=== PATIENT | male | born 1985 | race Caucasian/White ===

== ENCOUNTER 2019-02-05 14:06 | Inpatient (IN) | payer SELFPAY ==
[~2019-02-05] VITALS: Ht 185.4 cm; Wt 138.4 kg
[2019-02-05] MEDS ORDERED: METFORMIN500 MG PO (15:15)
[2019-02-05] MEDS ORDERED: ASPIRIN (15:16)
[2019-02-05] MEDS ORDERED: FISH OIL1000 MG PO (15:17)
[2019-02-05] MEDS ORDERED: LOSARTAN POT50 MG PO (15:17)
[2019-02-05 15:18] LABS: HEMATOCRIT 40.4 % (39.0-50.0); IMMATURE GRANULOCYTES 0.5 % (0.0-5.0); MEAN CELL VOLUME 88.2 fL CALC (80.0-100.0); MEAN CORPUSCULAR HGB 30.6 pG CALC (26.0-32.0); MEAN CORPUSCULAR HGB CONC 34.7 g/L CALC (32.0-36.0); NEUT# 3.79 thou/uL (1.82-7.42); RED BLOOD COUNT 4.58 mill/uL (4.70-6.10); RED CELL DISTRI WIDTH 12.2 % (11.5-15.5)
[2019-02-05 15:23] LABS: URINE BILIRUBIN - DIPSTICK NEGATIVE (NEGATIVE); URINE BLOOD DIPSTICK NEGATIVE (NEGATIVE); URINE COLOR YELLOW; URINE GLUCOSE - DIPSTICK >=1000 mg/dL (NEGATIVE); URINE KETONE TRACE mg/dL (NEGATIVE); URINE LEUK ESTERASE NEGATIVE (NEGATIVE); URINE NITRITE - DIPSTICK NEGATIVE (Negative); URINE PH 5.5 (4.5-8.0); URINE PROTEIN - DIPSTICK NEGATIVE (NEG-TRACE); URINE SPECIFIC GRAVITY <=1.005; URINE UROBILINOGEN - DIPSTICK 0.2 E.U./dL (0.2)
[2019-02-05 15:27] LABS: ALBUMIN 4.4 g/dL (3.2-5.0); ALKALINE PHOSPHATASE 190 u/l (38-126); ANION GAP 20 (6-22 (CALC)); BILIRUBIN, TOTAL 1.3 mg/dL (0.0-1.4); BUN 13 mg/dL (9-20); BUN/CREATININE RATIO 16 (12-20 (CALC)); CARBON DIOXIDE 20 mmol/l (22-30); CHLORIDE 95 mmol/l (95-108); CREATININE 0.8 mg/dL (0.7-1.3); GFR > 60 ML/MIN (>=60 (CALC)); GFR FOR AFR.AMER. > 60 ML/MIN (>=60 (CALC)); SGOT/AST 72 u/l (17-59); SODIUM 131 mmol/l (137-146); TOTAL PROTEIN 7.2 g/dL (6.3-8.2)
[2019-02-05 19:45] VITALS: BP 156/82
[2019-02-05 20:00] VITALS: BP 160/111
[2019-02-05 21:00] VITALS: BP 137/83
[2019-02-05 22:00] VITALS: BP 134/79
[2019-02-06] VITALS (8 sets, daily range): BP systolic 112–169; BP diastolic 77–101
[2019-02-06 00:56] LABS: BUN 13 mg/dL (9-20); BUN/CREATININE RATIO 14 (12-20 (CALC)); CHLORIDE 101 mmol/l (95-108); GFR > 60 ML/MIN (>=60 (CALC)); GFR FOR AFR.AMER. > 60 ML/MIN (>=60 (CALC))
[2019-02-06 00:58] LABS: ANION GAP 15 (6-22 (CALC))
[2019-02-06 00:59] LABS: CARBON DIOXIDE 26 mmol/l (22-30); SODIUM 138 mmol/l (137-146)
[2019-02-06 05:52] LABS: ANION GAP 15 (6-22 (CALC)); BUN 13 mg/dL (9-20); BUN/CREATININE RATIO 16 (12-20 (CALC)); CARBON DIOXIDE 25 mmol/l (22-30); CHLORIDE 103 mmol/l (95-108); CREATININE 0.8 mg/dL (0.7-1.3); GFR > 60 ML/MIN (>=60 (CALC)); GFR FOR AFR.AMER. > 60 ML/MIN (>=60 (CALC)); POTASSIUM 3.9 mmol/l (3.5-5.1); SODIUM 139 mmol/l (137-146)
[2019-02-07 00:05] VITALS: BP 146/81
[2019-02-07 04:56] VITALS: BP 141/88
[2019-02-07 05:46] LABS: HEMOGLOBIN 13.5 g/dl (14.0-18.0); IMMATURE GRANULOCYTES 0.4 % (0.0-5.0); MEAN CELL VOLUME 89.9 fL CALC (80.0-100.0); MEAN CORPUSCULAR HGB 30.3 pG CALC (26.0-32.0); MEAN CORPUSCULAR HGB CONC 33.8 g/L CALC (32.0-36.0); NEUT# 2.73 thou/uL (1.82-7.42); RED BLOOD COUNT 4.45 mill/uL (4.70-6.10); RED CELL DISTRI WIDTH 12.4 % (11.5-15.5)
[2019-02-07 06:14] LABS: ALBUMIN 4.2 g/dL (3.2-5.0); ALKALINE PHOSPHATASE 112 u/l (38-126); ANION GAP 15 (6-22 (CALC)); BILIRUBIN, TOTAL 1.1 mg/dL (0.0-1.4); BUN 12 mg/dL (9-20); BUN/CREATININE RATIO 14 (12-20 (CALC)); CARBON DIOXIDE 23 mmol/l (22-30); CHLORIDE 105 mmol/l (95-108); CREATININE 0.9 mg/dL (0.7-1.3); GFR > 60 ML/MIN (>=60 (CALC)); GFR FOR AFR.AMER. > 60 ML/MIN (>=60 (CALC)); MAGNESIUM 1.7 mg/dL (1.6-2.3); SGOT/AST 77 u/l (17-59); SODIUM 138 mmol/l (137-146); TOTAL PROTEIN 6.7 g/dL (6.3-8.2)
[2019-02-07 07:19] VITALS: BP 165/94
[2019-02-07 07:27] VITALS: BP 165/94
== END 2019-02-07 15:10 | disposition home or self-care (01) | DRG 638 ==
LOC: ED 14:06 → ED-I 15:58 → ED 17:41 → ICU 17:42 → MS2 02-06 14:06
PROVIDERS: Emergency Medicine; Internal Medicine Nephrology; ADMIT Internal Medicine; ATTEND Internal Medicine
DX: E11.65 Type 2 diabetes mellitus with hyperglycemia (principal); Z68.41 Body mass index [BMI] 40.0-44.9, adult; I10 Essential (primary) hypertension; F41.9 Anxiety disorder, unspecified; F32.9 Major depressive disorder, single episode, unspecified; E66.9 Obesity, unspecified; I51.7 Cardiomegaly; R74.0 Nonspecific elevation of levels of transaminase and lactic acid dehydrogenase [LDH]; F17.210 Nicotine dependence, cigarettes, uncomplicated; Z86.011 Personal history of benign neoplasm of the brain; Z83.3 Family history of diabetes mellitus; Z79.84 Long term (current) use of oral hypoglycemic drugs; Z91.14 Patient's other noncompliance with medication regimen
CPT/HCPCS: J1650

== ENCOUNTER 2021-07-14 09:10 | Day surgery (SDC) | payer BC ==
[~2021-07-14] VITALS: Ht 185.4 cm; Wt 163.3 kg
[~2021-07-14 09:10] MED LIST: AMARYL4 MG PO; ASPIRIN; CARVEDILOL12.5 MG PO; CHILD'S ASA81 MG PO; CINNAMON500 MG PO; CLINDAMYCIN EX; DOXYCYCL HYC100 M4 PO; ELDERBERRY PO; FISH OIL1000 MG PO; FLUCONAZOLE150 MG PO; GINKGO BILOB60 MG PO; LASIX 40 MG TAB40 MG PO; LEVEMIR100 UNIT SC; LOSARTAN POT50 MG PO; LOSARTAN POTASS50 MG PO; MAGNESIUM250 M1 PO; MAXIDE1 COMBO PO; METFORMIN500 MG PO; NIACIN TIME RE500 MG PO; NOVOLOG MIX SC; OMEGA 31000 MG PO; OMEPRAZOLE DR20 MG PO; POTASSIUM CHLO10 MEQ PO; TRULICITY0.75 MG/0. SC; VITAMIN B-121000 MC1 SL; VITAMIN C500 M6 PO; VITAMIN D31000 UNI1 PO; WATER PILL PO; ZINC50 M1 PO; [UNRECOGNIZED DRUG - OTHER] PO
[2021-07-14] MEDS ORDERED: TORADOL PO (11:35)
[2021-07-14 12:35] VITALS: BP 150/79
[2021-07-22] MEDS ORDERED: BACTRIM DS1 TAB PO (09:35)
[2021-07-22] MEDS ORDERED: DIFLUCAN100 MG PO (09:36)
== END 2021-07-14 12:48 | disposition home or self-care (01) | DRG 572 ==
LOC: ORM 09:10
PROVIDERS: ATTEND Surgery
PROC: 0HBCXZZ Excision of Left Upper Arm Skin, External Approach (ICD-10-PCS; principal; 2021-07-14)
PROC: 0JBM0ZZ Excision of Left Upper Leg Subcutaneous Tissue and Fascia, Open Approach (ICD-10-PCS; 2021-07-14)
PROC: 0JBL0ZZ Excision of Right Upper Leg Subcutaneous Tissue and Fascia, Open Approach (ICD-10-PCS; 2021-07-14)
PROC: 0VB50ZZ Excision of Scrotum, Open Approach (ICD-10-PCS; 2021-07-14)
DX: D17.22 Benign lipomatous neoplasm of skin and subcutaneous tissue of left arm (principal); L73.2 Hidradenitis suppurativa; L72.0 Epidermal cyst; I10 Essential (primary) hypertension; E11.9 Type 2 diabetes mellitus without complications; I87.8 Other specified disorders of veins; F17.200 Nicotine dependence, unspecified, uncomplicated
CPT/HCPCS: J0131